=== PATIENT | female | born 2000 | race Caucasian/White ===

== ENCOUNTER 2019-03-23 10:04 | Day surgery (SDC) | payer BC ==
[2019-03-23 11:58] LABS: ADD MAN DIFF? NO
[2019-03-23] MEDS ORDERED: MEPERIDINE 25 MG INJ IV (12:00)
[2019-03-23] MEDS ORDERED: HYDROmorphONE 1 MG/5 ML IV SYRINGE IV ×3 (12:00)
[2019-03-23] MEDS ORDERED: OXYCODONE/ACETAMINOPHEN (5/325) TAB PO ×2 (12:00)
[2019-03-23] MEDS ORDERED: LACTATED RINGER'S 1,000 ML IV (12:00)
[2019-03-23 12:02] LABS: BASOPHILS % 0.6 % (0.0-2.0); EOSINOPHILS # 0.1 10^3/ul (0.0-0.5); EOSINOPHILS % 0.9 % (0.0-7.0); HEMATOCRIT 42.2 % (37.0-47.0); HEMOGLOBIN 13.6 g/dl (12.0-16.0); LYMPHOCYTES # 2.1 10^3/ul (0.8-2.9); LYMPHOCYTES % 31.5 % (18.0-55.0); MEAN CORPUSCULAR HEMOGLOBIN 29.2 pg (29.0-33.0); MEAN CORPUSCULAR HGB CONC 32.2 g/dl (32.0-37.0); MEAN CORPUSCULAR VOLUME 90.6 fl (72.0-104.0); MEAN PLATELET VOLUME 9.7 fl (7.4-10.4); MONOCYTE # 0.4 10^3/ul (0.3-0.9); MONOCYTES % 6.5 % (0.0-13.0); PLATELET COUNT 344 10^3/UL (140-415); RED BLOOD COUNT 4.66 10^6/ul (4.20-5.40); RED CELL DISTRIBUTION WIDTH 12.2 % (11.5-14.5)
[2019-03-23 12:02] LABS: WHITE BLOOD COUNT 6.6 10^3/ul (4.8-10.8)
[2019-03-23] MEDS ORDERED: PROPOFOL 20 ML (12:12)
[2019-03-23] MEDS ORDERED: MIDAZOLAM 1 MG/ML 2 ML INJ (12:12)
[2019-03-23] MEDS ORDERED: FENTAnyl 50 MCG/ML VIAL (12:12)
[2019-03-23] MEDS ORDERED: LIDOCAINE 2% (SDV) 5 ML INJ (12:12)
[2019-03-23] MEDS ORDERED: CEFAZOLIN 1 GM INJ (12:12)
[2019-03-23 12:23] LABS: INR 0.95; PROTIME 12.8 Sec (11.9-14.9)
[2019-03-23 12:24] LABS: PARTIAL THROMBOPLASTIN TIME 26.9 Sec (23.0-35.0)
[2019-03-23 12:25] LABS: ANION GAP 10 (5-13); BLOOD UREA NITROGEN 11 mg/dl (7-20); CALCIUM 9.5 mg/dl (8.4-10.2); CARBON DIOXIDE 26 mmol/L (21-31); CHLORIDE 109 mmol/L (97-110); CREATININE 0.72 mg/dl (0.44-1.00); Estimated GFR > 60 mL/min (>60); GLUCOSE 90 mg/dl (70-220); POTASSIUM 4.2 mmol/L (3.5-5.1)
[2019-03-23 12:33] LABS: SODIUM 145 mmol/L (135-144)
[2019-03-23] MEDS ORDERED: METOCLOPRAMIDE 10 MG INJ (12:37)
[2019-03-23] MEDS ORDERED: FAMOTIDINE 20 MG INJ (12:37)
[2019-03-23] MEDS ORDERED: DEXAMETHASONE 4 MG/ML 5 ML INJ (12:37)
[2019-03-23] MEDS ORDERED: ONDANSETRON 4 MG INJ (12:37)
[2019-03-23] MEDS ORDERED: HYDROmorphONE 2 MG/ML SYG (12:46)
[2019-03-23] MEDS: BUPIVACAINE 0.5% (SDV) 30 ML INJ (12:51)
[2019-03-23] MEDS: LIDOCAINE 1% (MPF) 30 ML INJ (12:52)
[2019-03-23] MEDS: DEXAMETHASONE 4 MG/ML 1 ML INJ (12:53)
[2019-03-23] MEDS ORDERED: POVIDONE IODINE 10% 28.4 GM OINT (13:11)
[2019-03-23] MEDS ORDERED: KETOROLAC 30 MG INJ (13:11)
[2019-03-23] MEDS: ONDANSETRON 4 MG INJ IV (14:29)
== END 2019-03-23 16:33 | disposition home or self-care (01) ==
LOC: SDS 10:04
DX: M20.12 Hallux valgus (acquired), left foot (principal); M21.612 Bunion of left foot
CPT/HCPCS: 28298; 80048; 85025; 85610; 85730; 88304; 88311